=== PATIENT | female | born 1975 | race Caucasian/White ===

== ENCOUNTER → 2020-02-18 | Day surgery (SDC) | payer BC ==
[~2020-02-18] MED LIST: Ketamine 200 MG/20 ML MDV IV ONE; Lactated Ringers 1,000 ML IV SCH; Propofol 200 MG/20 ML SDV IV ONE; fentaNYL 100 MCG/2 ML SDV IV ONE
--- NOTE | 2020-02-18 14:54 | OR ---
DATE OF OPERATION: 02/18/2020 PREOPERATIVE DIAGNOSIS: GASTROESOPHAGEAL REFLUX DISEASE, CHEST PAIN. POSTOPERATIVE DIAGNOSIS: GASTROESOPHAGEAL REFLUX DISEASE, CHEST PAIN. SURGEON: Richie Barrios MD PROCEDURE: DIAGNOSTIC EGD WITH FORCEPS POLYP REMOVAL X2, RAND. ANESTHESIA: MAC. COMPLICATIONS: None. SPECIMEN: 1. Two small fundal polyps, adenomatous in nature. 2. Antral RAND. FINDINGS: 1. Full-length EGD. 2. Adenomatous polyps of fundus. 3. Spontaneous GERD without esophagitis or Palm's changes. RECOMMENDATIONS: Aggressive medical therapy for spontaneous reflux. INDICATIONS: The patient has been having ongoing issues with heartburn, originally got good results from Protonix, but lately has been having ongoing symptoms regardless of medication. Dr. Cortes sent her for diagnostic EGD. DESCRIPTION OF PROCEDURE: The patient was prepped and draped, placed in the left lateral decubitus position. A lubricated Olympus gastroscope was inserted over a bit, advanced to the cricopharyngeus area, and easily intubated into the esophagus. The esophageal lining was completely benign in its entire course. The Z-line was crisp and sharp at 40 cm. No hiatal hernia was present. There was some spontaneous reflux seen, but there was no distal esophagitis, stricturing, ulceration, or Palm's changes. The scope was intubated into the stomach, through the pylorus, and into the second portion of the duodenum. This and the duodenal bulb were completely benign. The scope was brought back into the stomach and retroflexed. The upper fundus and cardia appeared benign. Upon straightening, the rest of the fundus and the entire antrum showed no signs of any peptic ulcer disease, gastritis, ulcerations, etc. There were 5 or 6 small adenomatous polyps in the fundus, 2 large ones removed in their entirety with a forceps. A CLOtest was obtained. Air was then suctioned, scope removed without complication. MARIAN/ANNA MARIE /[id number]
== END ==
LOC: CC.SDS 09:36
PROVIDERS: ATTEND Family Medicine
DX: K31.7 Polyp of stomach and duodenum (principal); K21.9 Gastro-esophageal reflux disease without esophagitis; F32.9 Major depressive disorder, single episode, unspecified; E78.5 Hyperlipidemia, unspecified; Z11.59 Encounter for screening for other viral diseases; Z79.899 Other long term (current) drug therapy; Z87.891 Personal history of nicotine dependence
CPT/HCPCS: 00731; 87081; J2704; J3010; J7120; U0002